=== PATIENT | female | born 1950 | race Caucasian/White ===

== ENCOUNTER 2021-09-23 12:35 | Outpatient (REF) | payer OTHER, SELFPAY ==
[2021-09-23 12:49] LABS: MANUAL DIFF FLAG NO
[2021-09-23 13:27] LABS: Basophils Absolute Auto 0.1 X10*3/uL (0.0-0.2); Basophils Percent Auto 0.5 % (0-2); Eosinophils Absolute Auto 0.1 X10*3/uL (0.0-0.4); Eosinophils Percent Auto 0.3 % (0-4); Hematocrit 45.7 % (37.0-47.0); Hemoglobin 14.3 g/dl (12.0-16.0); Imm Gran Abs Auto 0.08 X10*3/uL (0.00-0.03); Imm Gran Pct Auto 0.5 % (0.0-0.4); Lymphocytes Absolute Auto 0.8 X10*3/uL (1.2-4.9); Lymphocytes Percent Auto 5.3 % (20-40); Mean Corpuscular HGB Conc 31.3 g/dl (31.0-35.0); Mean Corpuscular Hemoglobin 29.2 pg (27.0-33.0); Mean Corpuscular Volume 93.3 fL (80.0-98.0); Mean Platelet Volume 9.2 fL (9.4-12.3); Monocytes Absolute Auto 0.6 X10*3/uL (0.1-1.2); Monocytes Percent Auto 3.9 % (2-11); Neutrophils Absolute Auto 13.1 x10*3/uL (2.0-8.3); Neutrophils Percent Auto 89.5 % (45-73); Platelet Count 292 X10*3/uL (160-400); Red Cell Distribution Width 13.6 % (11.0-16.0); White Blood Count 14.6 X10*3/uL (4.8-10.8)
[2021-09-23 14:00] LABS: Alanine Aminotransferase 17 U/L (0-31); Alkaline Phosphatase 75 U/L (39-117); Anion Gap 17 (12-20); Aspartate Amino Transferase 20 U/L (5-31); Bilirubin Total 0.4 mg/dL (0.0-1.0); Blood Urea Nitrogen 5 mg/dL (9-16); C Reactive Protein 1.34 mg/dL (< or = 0.50); Calcium 9.4 mg/dL (8.4-10.2); Carbon Dioxide 24 mmol/L (22-29); Chloride 100 mmol/L (96-108); Estimated Glomerular Filt Rate > 60; Glucose Random 111 mg/dL (60-115); Potassium 4.8 mmol/L (3.3-5.1); Sodium 136 mmol/L (135-145); Total Protein 7.1 g/dL (6.5-8.0)
[2021-09-23 14:13] LABS: Erythrocyte Sedimentation Rate 8 MM/HR (0-20)
== END 2021-09-23 12:36 | disposition home or self-care (01) ==
LOC: HO.LAB 12:35
PROVIDERS: Visit Provider Internal Medicine Rheumatology
DX: M05.9 Rheumatoid arthritis with rheumatoid factor, unspecified (principal); M35.9 Systemic involvement of connective tissue, unspecified; J84.9 Interstitial pulmonary disease, unspecified; Z79.899 Other long term (current) drug therapy
CPT/HCPCS: 36415; 80053; 85025; 85652; 86140; 99212

== ENCOUNTER 2021-11-02 10:54 | Outpatient (REF) | payer OTHER, SELFPAY ==
[2021-11-02 13:41] LABS: MANUAL DIFF FLAG NO
[2021-11-02 13:44] LABS: Basophils Percent Auto 0.5 % (0-2); Eosinophils Absolute Auto 0.2 X10*3/uL (0.0-0.4); Eosinophils Percent Auto 1.9 % (0-4); Hematocrit 44.8 % (37.0-47.0); Hemoglobin 14.5 g/dl (12.0-16.0); Imm Gran Abs Auto 0.07 X10*3/uL (0.00-0.03); Imm Gran Pct Auto 0.9 % (0.0-0.4); Lymphocytes Absolute Auto 1.1 X10*3/uL (1.2-4.9); Lymphocytes Percent Auto 14.2 % (20-40); Mean Corpuscular HGB Conc 32.4 g/dl (31.0-35.0); Mean Corpuscular Hemoglobin 30.4 pg (27.0-33.0); Mean Corpuscular Volume 93.9 fL (80.0-98.0); Mean Platelet Volume 8.9 fL (9.4-12.3); Monocytes Absolute Auto 0.7 X10*3/uL (0.1-1.2); Monocytes Percent Auto 8.7 % (2-11); Neutrophils Absolute Auto 5.7 x10*3/uL (2.0-8.3); Neutrophils Percent Auto 73.8 % (45-73); Platelet Count 181 X10*3/uL (160-400); Red Blood Count 4.77 X10*6/uL (4.20-5.50); Red Cell Distribution Width 15.3 % (11.0-16.0); White Blood Count 7.7 X10*3/uL (4.8-10.8)
[2021-11-02 13:58] LABS: Alanine Aminotransferase 24 U/L (0-31); Albumin Level 4.3 g/dL (3.5-5.0); Alkaline Phosphatase 58 U/L (39-117); Anion Gap 16 (12-20); Aspartate Amino Transferase 24 U/L (5-31); Bilirubin Total 0.5 mg/dL (0.0-1.0); Blood Urea Nitrogen 6 mg/dL (9-16); C Reactive Protein 0.02 mg/dL (< or = 0.50); Calcium 9.4 mg/dL (8.4-10.2); Carbon Dioxide 26 mmol/L (22-29); Chloride 98 mmol/L (96-108); Estimated Glomerular Filt Rate > 60; Glucose Random 96 mg/dL (60-115); Potassium 5.1 mmol/L (3.3-5.1); Sodium 135 mmol/L (135-145)
[2021-11-02 14:31] LABS: Erythrocyte Sedimentation Rate 2 MM/HR (0-20)
== END 2021-11-02 10:55 | disposition home or self-care (01) ==
LOC: HO.10HDL 10:54
PROVIDERS: Visit Provider Internal Medicine Rheumatology
DX: M05.9 Rheumatoid arthritis with rheumatoid factor, unspecified (principal); J84.9 Interstitial pulmonary disease, unspecified; M53.9 Dorsopathy, unspecified; J30.9 Allergic rhinitis, unspecified; H10.45 Other chronic allergic conjunctivitis; Z79.899 Other long term (current) drug therapy
CPT/HCPCS: 36415; 80053; 85025; 85652; 86140; 99212

== ENCOUNTER 2021-12-02 13:47 | Outpatient (REF) | payer OTHER, SELFPAY ==
--- NOTE | 2021-12-02 17:24 | PFT_ITS ---
FLOWS: FEV1 78% of predicted at 1.52 L. FVC 64% of predicted at 1.67 L. FEV1 to FVC ratio of 0.91. No bronchodilator response. LUNG VOLUMES: Total lung capacity 54% of predicted at 2.50 L. Residual volume 29% of predicted at 0.62 L. Slow vital capacity 74% of predicted at 1.18 L. Expiratory reserve volume 24% of predicted at 0.14 L. Diffusion capacity is moderately decreased, diffusion capacity adjust to being mildly decreased after correction for alveolar ventilation. IMPRESSION: Moderate restrictive ventilatory defect with no bronchodilator response. Decreased expiratory reserve volume suggests extrathoracic restriction likely secondary to abdominal obesity. Decreased diffusion capacity to get obvious restricted ventilatory defect suggests underlying pulmonary parenchymal disease. Clinical correlation is advised. Stu Prescott MD AP/MODL / [id number]
== END 2021-12-02 13:48 | disposition home or self-care (01) ==
LOC: HO.RESP 13:47
PROVIDERS: Visit Provider Internal Medicine Rheumatology
DX: J84.9 Interstitial pulmonary disease, unspecified (principal); M35.9 Systemic involvement of connective tissue, unspecified
CPT/HCPCS: 94060; 94727; 94729

== ENCOUNTER → 2021-12-23 15:23 | Outpatient (BNVA) | payer OTHER, SELFPAY | PROVIDERS: PCP Student in an Organized Health Care Education/Training Program; Visit Provider Internal Medicine | DX: J98.4 Other disorders of lung (principal); J84.9 Interstitial pulmonary disease, unspecified; M35.9 Systemic involvement of connective tissue, unspecified; M05.9 Rheumatoid arthritis with rheumatoid factor, unspecified; R09.02 Hypoxemia | CPT/HCPCS: 94618; 99212 ==

== ENCOUNTER 2022-02-02 10:59 | Outpatient (REF) | payer OTHER, SELFPAY ==
[2022-02-02 14:10] LABS: MANUAL DIFF FLAG NO
[2022-02-02 14:15] LABS: Basophils Percent Auto 0.4 % (0-2); Eosinophils Absolute Auto 0.1 X10*3/uL (0.0-0.4); Eosinophils Percent Auto 0.8 % (0-4); Hematocrit 42.1 % (37.0-47.0); Hemoglobin 14.1 g/dl (12.0-16.0); Imm Gran Abs Auto 0.07 X10*3/uL (0.00-0.03); Imm Gran Pct Auto 0.7 % (0.0-0.4); Lymphocytes Absolute Auto 1.1 X10*3/uL (1.2-4.9); Lymphocytes Percent Auto 10.3 % (20-40); Mean Corpuscular HGB Conc 33.5 g/dl (31.0-35.0); Mean Corpuscular Hemoglobin 33.2 pg (27.0-33.0); Mean Corpuscular Volume 99.1 fL (80.0-98.0); Mean Platelet Volume 9.5 fL (9.4-12.3); Monocytes Absolute Auto 0.7 X10*3/uL (0.1-1.2); Monocytes Percent Auto 6.8 % (2-11); Neutrophils Absolute Auto 8.3 x10*3/uL (2.0-8.3); Platelet Count 184 X10*3/uL (160-400); Red Blood Count 4.25 X10*6/uL (4.20-5.50); Red Cell Distribution Width 12.3 % (11.0-16.0); White Blood Count 10.3 X10*3/uL (4.8-10.8)
[2022-02-02 14:29] LABS: Alanine Aminotransferase 29 U/L (0-31); Aspartate Amino Transferase 26 U/L (5-31); C Reactive Protein 0.03 mg/dL (< or = 0.50); Estimated Glomerular Filt Rate 57
[2022-02-02 15:28] LABS: Erythrocyte Sedimentation Rate 2 MM/HR (0-20)
== END 2022-02-02 11:00 | disposition home or self-care (01) ==
LOC: HO.10HDL 10:59
PROVIDERS: Visit Provider Internal Medicine Rheumatology
DX: M05.9 Rheumatoid arthritis with rheumatoid factor, unspecified (principal); J98.4 Other disorders of lung; R09.02 Hypoxemia; M35.9 Systemic involvement of connective tissue, unspecified; M75.82 Other shoulder lesions, left shoulder; M47.816 Spondylosis without myelopathy or radiculopathy, lumbar region; Z79.899 Other long term (current) drug therapy
CPT/HCPCS: 20610; 36415; 82565; 84450; 84460; 85025; 85652; 86140; 99212

== ENCOUNTER 2022-02-14 09:21 | Outpatient (REF) | payer OTHER, SELFPAY ==
--- NOTE | ~2022-02-14 | CT_ITS ---
EXAMINATION: CT CHEST WITHOUT CONTRAST CLINICAL INFORMATION: Hypoxemia. COMPARISON: None TECHNIQUE: Multidetector volumetric CT imaging of the chest was obtained without contrast administration. High-resolution images were also obtained. This CT examination was performed using dose optimization techniques as appropriate, variously including the following: *Automated exposure control *Adjustment of mA and/or kV according to patient size (this includes techniques or standardized protocols for targeted exams where dose is matched to indication/reason for exam; i.e. extremities or head) *Use of iterative reconstruction technique DLP: 212 mGy-cm FINDINGS: LUNGS: There are a few scattered areas of ground-glass opacity present. There is subpleural reticulation seen bilaterally with question of some honeycombing seen, most prominently within the left lower lobe and lingula where the most significant disease is present. There are also some intralobular linear opacities with irregular septal thickening. Central airways are patent. There is bronchial wall thickening present. There is mild bronchiectasis seen within the left lower lobe and lingula. No significant confluent parenchymal disease is seen. There appears to be some mild air-trapping within the right apical region. Other areas of possible air-trapping are difficult to evaluate due to the underlying ground-glass opacity/interstitial disease. There is loss of lung volume within the left lung. MEDIASTINUM: Heart upper limits of normal in size. No pericardial effusion. There is a small amount of calcified coronary artery plaque. No thoracic aortic aneurysm is appreciated. No significant aortic arch calcified plaque is noted. No significant thyroid abnormality is appreciated. No mediastinal or hilar lymphadenopathy is appreciated. PLEURA: There is no pleural effusion. No pleural mass or thickening. AXILLA: No lymphadenopathy. ABDOMEN: Status post cholecystectomy. No adrenal gland mass. MUSCULOSKELETAL: There is significant degenerative change of the right shoulder with marked narrowing of the glenohumeral joint. No significant destructive bony lesion is appreciated. Multilevel degenerative disc disease is seen within the thoracic spine. CT/CT chest wo con - High Res IMPRESSION: There is a reticular pattern seen bilaterally, the majority in a subpleural location, and most prominent in the lower lung zones with some bronchiectasis and loss of left lung volume. There appears be some degree of traction bronchiectasis. Findings are consistent with idiopathic pulmonary fibrosis. A similar pattern can be seen with usual interstitial pneumonia or nonspecific interstitial pneumonia. Fleischner guidelines were followed.
== END 2022-02-14 09:22 | disposition home or self-care (01) ==
LOC: HO.CT 09:21
PROVIDERS: Visit Provider Internal Medicine Rheumatology
DX: R09.02 Hypoxemia (principal); J98.4 Other disorders of lung; J84.9 Interstitial pulmonary disease, unspecified; M35.9 Systemic involvement of connective tissue, unspecified
CPT/HCPCS: 71250

== ENCOUNTER → 2022-02-21 11:05 | Outpatient (BNVA) | payer OTHER, SELFPAY | PROVIDERS: PCP Internal Medicine; Visit Provider Internal Medicine | DX: M05.9 Rheumatoid arthritis with rheumatoid factor, unspecified (principal); J84.9 Interstitial pulmonary disease, unspecified; J98.4 Other disorders of lung; R09.02 Hypoxemia; M35.9 Systemic involvement of connective tissue, unspecified | CPT/HCPCS: 99212 ==

== ENCOUNTER → 2022-04-21 10:41 | Outpatient (BNVA) | payer OTHER, SELFPAY | PROVIDERS: PCP Internal Medicine; Visit Provider Internal Medicine Rheumatology | DX: M05.9 Rheumatoid arthritis with rheumatoid factor, unspecified (principal); J84.9 Interstitial pulmonary disease, unspecified; M35.9 Systemic involvement of connective tissue, unspecified; Z79.52 Long term (current) use of systemic steroids; Z79.899 Other long term (current) drug therapy | CPT/HCPCS: 99212 ==

== ENCOUNTER 2022-04-21 11:28 | Outpatient (REF) | payer OTHER, SELFPAY ==
[2022-04-21 13:32] LABS: MANUAL DIFF FLAG NO
[2022-04-21 14:07] LABS: Basophils Absolute Auto 0.1 X10*3/uL (0.0-0.2); Eosinophils Absolute Auto 0.1 X10*3/uL (0.0-0.4); Eosinophils Percent Auto 0.9 % (0-4); Hematocrit 39.8 % (37.0-47.0); Hemoglobin 13.4 g/dl (12.0-16.0); Imm Gran Abs Auto 0.04 X10*3/uL (0.00-0.03); Imm Gran Pct Auto 0.5 % (0.0-0.4); Lymphocytes Absolute Auto 0.8 X10*3/uL (1.2-4.9); Lymphocytes Percent Auto 9.8 % (20-40); Mean Corpuscular HGB Conc 33.7 g/dl (31.0-35.0); Mean Corpuscular Volume 103.9 fL (80.0-98.0); Mean Platelet Volume 9.4 fL (9.4-12.3); Monocytes Absolute Auto 0.5 X10*3/uL (0.1-1.2); Monocytes Percent Auto 6.6 % (2-11); Neutrophils Absolute Auto 6.6 x10*3/uL (2.0-8.3); Neutrophils Percent Auto 81.2 % (45-73); Platelet Count 169 X10*3/uL (160-400); Red Blood Count 3.83 X10*6/uL (4.20-5.50); Red Cell Distribution Width 13.1 % (11.0-16.0); White Blood Count 8.1 X10*3/uL (4.8-10.8)
[2022-04-21 14:48] LABS: Alanine Aminotransferase 46 U/L (0-31); Aspartate Amino Transferase 34 U/L (5-31); C Reactive Protein < 0.04 mg/dL (< or = 0.50); Estimated Glomerular Filt Rate 55
[2022-04-21 14:58] LABS: Erythrocyte Sedimentation Rate 2 MM/HR (0-20)
== END 2022-04-21 11:29 | disposition home or self-care (01) ==
LOC: HO.10HDL 11:28
PROVIDERS: Visit Provider Internal Medicine Rheumatology
DX: M05.9 Rheumatoid arthritis with rheumatoid factor, unspecified (principal); J84.9 Interstitial pulmonary disease, unspecified; M35.9 Systemic involvement of connective tissue, unspecified; Z79.899 Other long term (current) drug therapy
CPT/HCPCS: 36415; 82565; 84450; 84460; 85025; 85652; 86140

== ENCOUNTER → 2022-08-15 11:18 | Outpatient (BNVA) | payer OTHER, SELFPAY | PROVIDERS: PCP Internal Medicine; Visit Provider Internal Medicine | DX: M05.9 Rheumatoid arthritis with rheumatoid factor, unspecified (principal); J84.9 Interstitial pulmonary disease, unspecified; M35.9 Systemic involvement of connective tissue, unspecified; J98.4 Other disorders of lung; R09.02 Hypoxemia | CPT/HCPCS: 99212 ==